=== PATIENT | male | born 1960 | race American Indian/Alaskan Native ===

== ENCOUNTER 2016-10-16 13:47 | Inpatient (IN) | payer MEDICAID ==
[2016-10-16] MEDS ORDERED: PROVENTIL IH ONE (16:31)
[2016-10-16] MEDS ORDERED: MAGNESIUM SULFATE 2GM/50ML 2 GM/50 ML BAG IV ONE (16:31)
[2016-10-16] MEDS ORDERED: ATROVENT IH ONE (16:31)
[2016-10-16] MEDS ORDERED: CATAPRES PO ONE (16:34)
--- NOTE | 2016-10-16 16:38 | Emergency Department Report ---
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 Patient had increased wheezing episodes not alleviated with home nebulizer treatments. Patient received albuterol 2.5 mg prior to arrival with minimal improvement. Mild cough reported with chills and no documented fever. Patient has intermittent left-sided neck and left- sided chest pain described as a lightning strike however, patient states he takes narcotic pain medication for chronic chest pain and does not have any narcotics currently. Positive history of intubations.Pt denies home 02 use. 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 - Related Data Home Medications Medication Instructions Recorded Confirmed Last Taken cloNIDine [Catapres] 0.1 mg PO BID 10/16/16 10/16/16 Unknown Previous Rx's Medication Instructions Recorded Last Taken Type ALBUTEROL NEB's [Proventil 0.083% 2.5 mg IH TID #10 ml 02/04/16 Unknown Rx NEBS] Carvedilol [Coreg] 25 mg PO BID #60 tablet 02/04/16 Unknown Rx Fluticasone/Salmeterol [Advair 1 puff IH BID #1 blst.w.dev 02/04/16 Unknown Rx Diskus 500-50 mcg] Simvastatin [Zocor TAB] 10 mg PO QHS #30 tablet 02/04/16 Unknown Rx Tiotropium [Spiriva] 18 mcg IH QDAY #1 cap 02/04/16 Unknown Rx amLODIPine [Norvasc] 10 mg PO QDAY #30 tablet 02/04/16 Unknown Rx Aspirin [Aspirin BABY CHEW TAB] 81 mg PO QDAY tab.chew 04/29/16 Unknown Rx Ipratropium/Albuterol Sulfate 1 ampul IH TIDRT ampul.neb 04/29/16 Unknown Rx [Duoneb 0.5 mg-3 mg/3 ml Soln] Pantoprazole [Protonix TAB] 40 mg PO DAILY #30 tablet 04/29/16 Unknown Rx Allergies Allergy/AdvReac Type Severity Reaction Status Date / Time acetaminophen [From Tylenol] Allergy Unknown Verified 02/13/15 15:01 ED Review of Systems ROS: Stated complaint: JOSE DE JESUS Other details as noted in HPI Comment: All other systems reviewed and negative Other: Constitutional: No fevers Eyes: No eye pain visual changes ENT: No ear pain or throat pain Neck: Left-sided neck pain sending to left chest Respiratory: As per HPI Cardiovascular: Chest pain as per HPI GI: Denies abdominal pain, nausea, vomiting, diarrhea : Denies dysuria, urinary frequency, or urgency Musculoskeletal: Denies back pain, joint swelling Skin: Denies rash, lesions, erythema Neurologic: Denies headache, numbness, weakness Psychiatric: Denies suicidal ideation, hallucinations ED Past Medical Hx - Past Medical History Previous Medical History?: Yes Hx Hypertension: Yes Hx CVA: Yes (uses walker, intermittent difficulty speaking after CVA) Hx Heart Attack/AMI: Yes Hx Congestive Heart Failure: Yes Hx Diabetes: No Hx Pulmonary Embolism: No Hx GERD: No Hx Liver Disease: No Hx Renal Disease: No Hx Arthritis: Yes Hx Seizures: No Hx Kidney Stones: No Hx Asthma: Yes Hx COPD: Yes Hx Tuberculosis: No Hx Dementia: No Hx HIV: No Additional medical history: aortic valve replacement X 2 - Surgical History Past Surgical History?: Yes Hx Open Heart Surgery: Yes (aortic valve replacement X 2 (mechanical 2005, porcine 2013)) Hx Pacemaker: No Hx Internal Defibrillator: No - Social History Smoking Status: Former Smoker - Medications Home Medications: Home Medications Medication Instructions Recorded Confirmed Last Taken Type ALBUTEROL NEB's [Proventil 0.083% 2.5 mg IH TID #10 ml 02/04/16 10/16/16 Unknown Rx NEBS] Carvedilol [Coreg] 25 mg PO BID #60 tablet 02/04/16 10/16/16 Unknown Rx Fluticasone/Salmeterol [Advair 1 puff IH BID #1 blst.w.dev 02/04/16 10/16/16 Unknown Rx Diskus 500-50 mcg] Simvastatin [Zocor TAB] 10 mg PO QHS #30 tablet 02/04/16 10/16/16 Unknown Rx Tiotropium [Spiriva] 18 mcg IH QDAY #1 cap 02/04/16 10/16/16 Unknown Rx amLODIPine [Norvasc] 10 mg PO QDAY #30 tablet 02/04/16 10/16/16 Unknown Rx Aspirin [Aspirin BABY CHEW TAB] 81 mg PO QDAY tab.chew 04/29/16 10/16/16 Unknown Rx Ipratropium/Albuterol Sulfate 1 ampul IH TIDRT ampul.neb 04/29/16 10/16/16 Unknown Rx [Duoneb 0.5 mg-3 mg/3 ml Soln] Pantoprazole [Protonix TAB] 40 mg PO DAILY #30 tablet 04/29/16 10/16/16 Unknown Rx cloNIDine [Catapres] 0.1 mg PO BID 10/16/16 10/16/16 Unknown History ED Physical Exam - General Limitations: No Limitations - Other Other exam information: General: No limitations, patient is alert in no acute distress Head exam: Atraumatic, normocephalic Eyes exam: Normal appearance, pupils equal reactive to light, extraocular movements intact ENT: Moist mucous membrane, normal oropharynx Neck exam: Normal inspection, full range of motion, no meningismus, left scm muscle pain with movement Respiratory exam: Mild tachypnea and accessory muscle use, diminished breath sounds bilaterally, no wheezes or crackles auscultated Cardiovascular: Normal rate and rhythm, sternal scar Abdomen: Soft, nondistended, and nontender, with normal bowel sounds, no rebound, or guarding Extremity: Full range of motion normal inspection no deformity, tenderness or edema Back: Normal Inspection, full range of motion, no tenderness Neurologic: Alert, oriented x3, cranial nerves intact, left sided 4/5 upper and lower extremity strength compared to right Psychiatric: normal affect, normal mood Skin: Warm, dry, intact ED Course Vital Signs 10/16/16 10/16/16 10/16/16 13:53 15:06 15:30 Temperature 98.1 F Pulse Rate 82 61 64 Pulse Rate [ Anterior Bilateral Throughout] Respiratory 24 17 14 Rate Respiratory Rate [Anterior Bilateral Throughout] Blood Pressure 160/100 172/108 O2 Sat by Pulse 97 98 96 Oximetry 10/16/16 10/16/16 10/16/16 16:00 16:30 16:42 Temperature Pulse Rate 63 98 H 66 Pulse Rate [ Anterior Bilateral Throughout] Respiratory 18 24 Rate Respiratory Rate [Anterior Bilateral Throughout] Blood Pressure 171/108 187/110 174/111 O2 Sat by Pulse 100 100 Oximetry 10/16/16 10/16/16 10/16/16 16:45 16:59 17:00 Temperature Pulse Rate 126 H Pulse Rate [ 73 83 Anterior Bilateral Throughout] Respiratory 17 Rate Respiratory 15 16 Rate [Anterior Bilateral Throughout] Blood Pressure 162/104 O2 Sat by Pulse 93 Oximetry 10/16/16 10/16/16 10/16/16 17:30 18:00 18:07 Temperature 98.2 F Pulse Rate 64 60 Pulse Rate [ Anterior Bilateral Throughout] Respiratory 16 21 Rate Respiratory Rate [Anterior Bilateral Throughout] Blood Pressure 172/100 166/95 O2 Sat by Pulse 93 94 Oximetry - Reevaluation(s) Reevaluation #1: 10/16/16 16:37 Albuterol, Atrovent, Solu-Medrol, and magnesium ordered. Clonidine 0.1 mg ordered for persistent hypertension patient states she's been compliant with his meds. Dilaudid given for left chest and neck pain 10/16/16 18:31 Reevaluation #2: 10/16/16 18:25 BP improving with ED treatment. Pain improving with ED treatment. Breathing improved with ED treatment ED Medical Decision Making - Lab Data Result diagrams: 10/16/16 16:25 10/16/16 16:25 Lab Results 10/16/16 10/16/16 Range/Units 16:25 16:25 WBC 5.6 (4.5-11.0) K/mm3 RBC 5.23 H (3.65-5.03) M/mm3 Hgb 14.9 (11.8-15.2) gm/dl Hct 45.2 (35.5-45.6) % MCV 86 (84-94) fl MCH 29 (28-32) pg MCHC 33 (32-34) % RDW 13.9 (13.2-15.2) % Plt Count 116 L (140-440) K/mm3 Lymph % (Auto) 28.4 (13.4-35.0) % [place] % (Auto) 11.3 H (0.0-7.3) % Eos % (Auto) 10.9 H (0.0-4.3) % Baso % (Auto) 1.0 (0.0-1.8) % Lymph # 1.6 (1.2-5.4) K/mm3 [place] # 0.6 (0.0-0.8) K/mm3 Eos # 0.6 H (0.0-0.4) K/mm3 Baso # 0.1 (0.0-0.1) K/mm3 Seg Neutrophils % 48.4 (40.0-70.0) % Seg Neutrophils # 2.7 (1.8-7.7) K/mm3 Sodium 143 (137-145) mmol/L Potassium 3.3 L (3.6-5.0) mmol/L Chloride 100.2 (98-107) mmol/L Carbon Dioxide 27 (22-30) mmol/L Anion Gap 19 mmol/L BUN 13 (9-20) mg/dL Creatinine 1.5 (0.8-1.5) mg/dL Estimated GFR 59 ml/min BUN/Creatinine Ratio 8.66 % Glucose 92 (75-100) mg/dL Calcium 9.2 (8.4-10.2) mg/dL Troponin T < 0.010 (0.00-0.029) ng/mL - EKG Data -: EKG Interpreted by Me (nsr 62, no stemi) - Radiology Data Radiology results: report reviewed (cxr hyperinflation), image reviewed (chest x -ray: Hyperinflated without infiltrates, pneumothorax, or edema) - Medical Decision Making plan to admit to hospital for further copd treatment - Differential Diagnosis CHF, COPD, asthma, pneumonia, bronchitis, ND, chronic chest pain Critical Care Time: No Critical care attestation.: If time is entered above; I have spent that time in minutes in the direct care of this critically ill patient, excluding procedure time. ED Disposition Clinical Impression: Chest pain, HTN (hypertension), Hemiparesis affecting left side as late effect of cerebrovascular accident, COPD exacerbation Disposition: OP ADMITTED IP TO THIS HOSP Is pt being admited?: Yes Instructions: Hypertension (ED) Time of Disposition: 18:27 (Dr Tejada/hosp)
[2016-10-16] MEDS ORDERED: ZOFRAN IV ONE (16:49)
[2016-10-16] MEDS ORDERED: DILAUDID IV ONE (16:49)
--- NOTE | 2016-10-16 16:50 | XRay Report ---
AP chest x-ray. Findings: The heart and pulmonary vessels are normal. The lungs are clear and appear hyperinflated. There is no evidence of pleural fluid. Sternotomy sutures are noted. Impression: Hyperinflation lungs with no acute findings.
[2016-10-16 17:14] LABS: Eosinophils % (Auto) 10.9 % (0.0-4.3); Hematocrit 45.2 % (35.5-45.6); Hemoglobin 14.9 gm/dl (11.8-15.2); Mean Corpuscular HGB Conc 33 % (32-34); Mean Corpuscular Hemoglobin 29 pg (28-32); Mean Corpuscular Volume 86 fl (84-94); Red Blood Count 5.23 M/mm3 (3.65-5.03); Red Cell Distribution Width 13.9 % (13.2-15.2); White Blood Count 5.6 K/mm3 (4.5-11.0)
[2016-10-16 17:56] LABS: Anion Gap 19 mmol/L; BUN/Creatinine Ratio 8.66; Blood Urea Nitrogen 13 mg/dL (9-20); Calcium 9.2 mg/dL (8.4-10.2); Carbon Dioxide 27 mmol/L (22-30); Chloride 100.2 mmol/L (98-107); Glucose 92 mg/dL (75-100); Potassium 3.3 mmol/L (3.6-5.0); Sodium 143 mmol/L (137-145)
[2016-10-16 18:14] LABS: Platelet Count 116 K/mm3 (140-440)
--- NOTE | 2016-10-16 18:53 | Admit Criteria Form ---
Admission Criteria Documentation: COPD Clinical Indications for Admission to Inpatient Care (Place 'X' for any and all applicable criteria): Admission is indicated for ANY ONE of the following (1)(2)(3): [X]I. Acute exacerbation by high-risk comorbidity (e.g., pneumonia, dysrhythmia, heart failure, pleural effusion, pneumothorax) or severe underlying COPD (e.g., steroid dependent) [X]II. Inpatient admission required rather than observation care (see Chronic Obstructive Pulmonary Disease: Observation Care) because of ANY ONE of the following: [X]a) New or pre-existing signs or symptoms of COPD (eg, dyspnea or Tachypnea at rest or with minimal activity) that persist despite outpatient and observation care treatment [ ]b) New-onset hypoxemia (room air SaO2 less than 90%, PO2 less than 60 mm Hg (8.0 kPa)) that persists despite outpatient and observation care treatment [ ]c) Worsening of pre-existing hypoxemia (eg, new or increased requirement for supplemental oxygen to maintain oxygenation at baseline level) that persists despite outpatient and observation care treatment, with oxygen treatment needs performable only in acute inpatient setting [ ]d) Hypercarbia (PCO2 greater than 40 mm Hg (5.3 kPa))-induced respiratory acidosis (pH less than 7.35) that persists despite outpatient and observation care treatment [ ]e) Supplemental oxygen or respiratory treatments for over 24 hours that are performable only in acute inpatient setting [ ]f) Chest tube placement with active evacuation (e.g., suction, drainage) (5) [ ]g) Other condition, treatment or monitoring requiring inpatient admission [ ]III. Planned invasive surgical or diagnostic procedures requiring acute- care hospitalization [ ]IV. Acute respiratory failure (e.g., uncompensated hypercarbia, severe hypoxemia) [ ]V. Severe comorbid condition (e.g., severe steroid myopathy, acute vertebral fracture) that has acutely worsened pulmonary function [ ]. Confusion state, lethargy, obtundation, stupor or coma Extended stay beyond goal length of stay may be needed for (31)(32): [ ]a ) Respiratory Failure. [ ]b) Severe or persisting hypoxemia or hypercarbia [ ]c) Severe or persistent dyspnea [ ]d) Comorbidities (e.g. chronic heart failure, atrial fibrillation with rapid response, pneumonia) [ ]e) Malnutrition The original [facility] content created by [facility] has been revised. The portions of the content which have been revised are identified through the use of italic text or in bold, and [facility] has neither reviewed nor approved the modified material. All other unmodified content is copyright [facility]. Please see references footnoted in the original [facility] edition 2016 Admission Criteria Met: Yes
[2016-10-16] MEDS ORDERED: PERCOCET 5/325 PO PRN (21:37)
[2016-10-16] MEDS ORDERED: TYLENOL PO PRN (21:37)
[2016-10-16] MEDS ORDERED: MILK OF MAGNESIA PO PRN (21:37)
[2016-10-16] MEDS ORDERED: AMBIEN PO PRN (21:37)
[2016-10-16] MEDS ORDERED: DULCOLAX PR PRN (21:37)
--- NOTE | 2016-10-16 21:37 | History and Physical Report ---
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 Patient had increased wheezing episodes not alleviated with home nebulizer treatments. Patient received albuterol 2.5 mg prior to arrival with minimal improvement. Mild cough reported with chills and no documented fever. Patient has intermittent left-sided neck and left- sided chest pain described as a lightning strike however, patient states he takes narcotic pain medication for chronic chest pain and does not have any narcotics currently. Positive history of intubations.Pt denies home 02 use. 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 Past History Past Medical History: COPD, hypertension, hyperlipidemia, stroke (in the past) Past Surgical History: valve replacement Social history: lives with family, smoking Family history: hypertension Medications and Allergies Allergies Allergy/AdvReac Type Severity Reaction Status Date / Time acetaminophen [From Tylenol] Allergy Unknown Verified 02/13/15 15:01 Home Medications Medication Instructions Recorded Confirmed Last Taken Type ALBUTEROL NEB's [Proventil 0.083% 2.5 mg IH TID #10 ml 02/04/16 10/16/16 Unknown Rx NEBS] Carvedilol [Coreg] 25 mg PO BID #60 tablet 02/04/16 10/16/16 Unknown Rx Fluticasone/Salmeterol [Advair 1 puff IH BID #1 blst.w.dev 02/04/16 10/16/16 Unknown Rx Diskus 500-50 mcg] Simvastatin [Zocor TAB] 10 mg PO QHS #30 tablet 02/04/16 10/16/16 Unknown Rx Tiotropium [Spiriva] 18 mcg IH QDAY #1 cap 02/04/16 10/16/16 Unknown Rx amLODIPine [Norvasc] 10 mg PO QDAY #30 tablet 02/04/16 10/16/16 Unknown Rx Aspirin [Aspirin BABY CHEW TAB] 81 mg PO QDAY tab.chew 04/29/16 10/16/16 Unknown Rx Ipratropium/Albuterol Sulfate 1 ampul IH TIDRT ampul.neb 04/29/16 10/16/16 Unknown Rx [Duoneb 0.5 mg-3 mg/3 ml Soln] Pantoprazole [Protonix TAB] 40 mg PO DAILY #30 tablet 04/29/16 10/16/16 Unknown Rx cloNIDine [Catapres] 0.1 mg PO BID 10/16/16 10/16/16 Unknown History Active Meds: Active Medications Enoxaparin Sodium (Lovenox) 40 mg SUB-Q QDAY JUANJOSE Review of Systems All systems: negative Cardiovascular: chest pain Respiratory: shortness of breath, congestion, wheezing Neurological: paralysis (L side) Exam - Constitutional Vitals: Temp Pulse Resp BP Pulse Ox 97.7 F 71 19 136/86 94 10/16/16 19:40 10/16/16 19:40 10/16/16 19:40 10/16/16 19:40 10/16/16 19:40 General appearance: Present: no acute distress, well-nourished - EENT Eyes: Present: PERRL ENT: hearing intact, clear oral mucosa - Neck Neck: Present: supple, normal ROM - Respiratory Respiratory effort: normal Respiratory: bilateral: CTA - Cardiovascular Heart Sounds: Present: S1 & S2. Absent: rub, click - Extremities Extremities: pulses symmetrical, No edema Peripheral Pulses: within normal limits - Abdominal General gastrointestinal: Present: soft, non-tender, non-distended, normal bowel sounds Male genitourinary: Present: normal - Integumentary Integumentary: Present: clear, warm, dry - Musculoskeletal Musculoskeletal: gait normal, strength equal bilaterally - Psychiatric Psychiatric: appropriate mood/affect, intact judgment & insight - Neurologic Neurologic: CNII-XII intact, focal deficits (L side Hemiparesis) Results - Labs CBC & Chem 7: 10/17/16 06:52 10/17/16 06:52 Assessment and Plan - Patient Problems (1) Acute respiratory failure with hypoxia Current Visit: No Status: Acute Plan to address problem: Cont Neb Tx Solumedrol and Levaquin IV (2) COPD exacerbation Current Visit: Yes Status: Acute Plan to address problem: Started on Neb tx solumedrol and Levaquin iv 750 mg q24 (3) HTN (hypertension) Current Visit: Yes Status: Chronic Qualifiers: Hypertension type: essential hypertension Qualified Code(s): I10 - Essential (primary) hypertension Plan to address problem: Cont Antihypertensives (4) CVA (cerebral vascular accident) Current Visit: No Status: Chronic Qualifiers: CVA mechanism: thrombosis Precerebral and cerebral artery: middle cerebral artery Laterality of affected vessel: right Qualified Code(s): I63.311 - Cerebral infarction due to thrombosis of right middle cerebral artery Plan to address problem: L side weakness-supportive care (5) HLD (hyperlipidemia) Current Visit: Yes Status: Acute Qualifiers: Hyperlipidemia type: H (6) Hyperlipidemia Current Visit: No Status: Chronic Qualifiers: Hyperlipidemia type: mixed hyperlipidemia Qualified Code(s): E78.2 - Mixed hyperlipidemia Plan to address problem: Cont statins (7) DVT prophylaxis Current Visit: Yes Status: Acute Plan to address problem: On Lovenox
[2016-10-16] MEDS ORDERED: DUONEB 0.5 MG-3 MG/3 ML SOLN IH PRN (21:39)
[2016-10-16] MEDS ORDERED: PROVENTIL IH PRN (22:09)
[2016-10-16] MEDS: DUONEB 0.5 MG-3 MG/3 ML SOLN IH SCH (22:10)
[2016-10-17] MEDS: DILAUDID PO PRN ×2 (00:12→05:31)
[2016-10-17] MEDS: LEVAQUIN 750MG/150ML 750 MG/150 ML BAG IV SCH (00:16)
[2016-10-17] MEDS: D5NS 1,000 ML IV SCH (00:17)
[2016-10-17] MEDS: DUONEB 0.5 MG-3 MG/3 ML SOLN IH SCH ×4 (02:01→19:32)
[2016-10-17 07:51] LABS: Hematocrit 43.5 % (35.5-45.6); Hemoglobin 14.3 gm/dl (11.8-15.2); Mean Corpuscular HGB Conc 33 % (32-34); Mean Corpuscular Hemoglobin 29 pg (28-32); Mean Corpuscular Volume 87 fl (84-94); Platelet Count 109 K/mm3 (140-440); Red Blood Count 4.99 M/mm3 (3.65-5.03); Red Cell Distribution Width 14.1 % (13.2-15.2); White Blood Count 6.9 K/mm3 (4.5-11.0)
[2016-10-17 08:06] LABS: Albumin 3.9 g/dL (3.9-5); Albumin/Globulin Ratio 1.3 %; BUN/Creatinine Ratio 8.94; Bilirubin,Total 0.7 mg/dL (0.1-1.2); Calcium 9.3 mg/dL (8.4-10.2); Chloride 96.2 mmol/L (98-107); Potassium 3.4 mmol/L (3.6-5.0); Total Protein 6.8 g/dL (6.3-8.2)
[2016-10-17] MEDS ORDERED: PROVENTIL IH PRN (08:48)
[2016-10-17] MEDS: LOVENOX SUB-Q SCH (09:27)
[2016-10-17 09:47] LABS: Basophils % (Manual) 0 % (0.0-1.8); Blastocytes % (Manual) 0 %; Diff Status Complete; Eosinophils % (Manual) 0 % (0.0-4.3); Large Platelets Few; Platelet Estimate Consistent w Auto; RBC Morphology Normal; Total Cells Counted Percent 0
[2016-10-17] MEDS: MORPHINE IV PRN ×3 (11:22→22:54)
--- NOTE | 2016-10-17 13:16 | Progress Note ---
Assessment and Plan Assessment and plan: 55-year-old male presents with COPD exacerbation. Patient appears to have advanced COPD. Limited air entry. Mild wheezing but diminished breath sounds exacerbated by an acute bronchitis. Total Time Spent with Patient (Minutes): 28 - Patient Problems (1) COPD exacerbation Current Visit: Yes Status: Acute Plan to address problem: COPD exacerbation with acute bronchitis. (2) Chest pain Current Visit: Yes Status: Resolved Qualifiers: Chest pain type: C Plan to address problem: Chest pain noncardiac chest pain secondary to coughing acute bronchitis. (3) HTN (hypertension) Current Visit: Yes Status: Chronic Qualifiers: Hypertension type: essential hypertension Qualified Code(s): I10 - Essential (primary) hypertension Plan to address problem: Fairly well-controlled we'll continue anti-hypertensive medications. (4) COPD (chronic obstructive pulmonary disease) with acute bronchitis Current Visit: No Status: Chronic Plan to address problem: COPD would acute bronchitis continue Levaquin continue nebulizes every 6 hours. DuoNeb nebs. Add Solu-Medrol. Patient recently saw Dr. Sushila pantoja 2 days ago and was in the process of being evaluated for home O2. We'll evaluate for home O2 now. History Interval history: Patient states he still short of breath. Patient states he got up to brush his teeth today and became very short of breath. At present patient has dyspnea at rest. Cough thick purulent sputum. Hospitalist Physical - Constitutional Vitals: Temp Pulse Resp BP Pulse Ox 98 F 83 20 116/76 97 10/17/16 08:00 10/17/16 08:50 10/17/16 08:50 10/17/16 08:00 10/17/16 08:45 General appearance: Present: no acute distress, well-nourished - EENT Eyes: Present: PERRL, EOM intact ENT: hearing intact, clear oral mucosa, dentition normal - Neck Neck: Present: supple, normal ROM - Respiratory Respiratory: bilateral: diminished, rales - Cardiovascular Rhythm: regular Heart Sounds: Present: S1 & S2 - Extremities Extremities: no ischemia, pulses intact, pulses symmetrical, No edema, normal temperature - Abdominal General gastrointestinal: soft, non-tender, non-distended - Psychiatric Psychiatric: appropriate mood/affect, intact judgment & insight, cooperative - Neurologic Neurologic: CNII-XII intact Results - Labs CBC & Chem 7: 10/17/16 06:52 02/10/17 06:52 Labs: Laboratory Last Values WBC 6.9 K/mm3 (4.5-11.0) 10/17/16 06:52 RBC 4.99 M/mm3 (3.65-5.03) 10/17/16 06:52 Hgb 14.3 gm/dl (11.8-15.2) 10/17/16 06:52 Hct 43.5 % (35.5-45.6) 10/17/16 06:52 MCV 87 fl (84-94) 10/17/16 06:52 MCH 29 pg (28-32) 10/17/16 06:52 MCHC 33 % (32-34) 10/17/16 06:52 RDW 14.1 % (13.2-15.2) 10/17/16 06:52 Plt Count 109 K/mm3 (140-440) L 10/17/16 06:52 Lymph % (Auto) 28.4 % (13.4-35.0) 10/16/16 16:25 [place] % (Auto) 11.3 % (0.0-7.3) H 10/16/16 16:25 Eos % (Auto) 10.9 % (0.0-4.3) H 10/16/16 16:25 Baso % (Auto) 1.0 % (0.0-1.8) 10/16/16 16:25 Lymph # 1.6 K/mm3 (1.2-5.4) 10/16/16 16:25 [place] # 0.6 K/mm3 (0.0-0.8) 10/16/16 16:25 Eos # 0.6 K/mm3 (0.0-0.4) H 10/16/16 16:25 Baso # 0.1 K/mm3 (0.0-0.1) 10/16/16 16:25 Add Manual Diff Complete 10/17/16 06:52 Total Counted 100 10/17/16 06:52 Seg Neutrophils % 48.4 % (40.0-70.0) 10/16/16 16:25 Seg Neuts % (Manual) 89.0 % (40.0-70.0) H 10/17/16 06:52 Band Neutrophils % 0 % 10/17/16 06:52 Lymphocytes % (Manual) 11.0 % (13.4-35.0) L 10/17/16 06:52 Reactive Lymphs % (Man) 0 % 10/17/16 06:52 Monocytes % (Manual) 0 % (0.0-7.3) 10/17/16 06:52 Eosinophils % (Manual) 0 % (0.0-4.3) 10/17/16 06:52 Basophils % (Manual) 0 % (0.0-1.8) 10/17/16 06:52 Metamyelocytes % 0 % 10/17/16 06:52 Myelocytes % 0 % 10/17/16 06:52 Promyelocytes % 0 % 10/17/16 06:52 Blast Cells % 0 % 10/17/16 06:52 Nucleated RBC % Not Reportable 10/17/16 06:52 Seg Neutrophils # 2.7 K/mm3 (1.8-7.7) 10/16/16 16:25 Seg Neutrophils # Man 6.1 K/mm3 (1.8-7.7) 10/17/16 06:52 Band Neutrophils # 0.0 K/mm3 10/17/16 06:52 Lymphocytes # (Manual) 0.8 K/mm3 (1.2-5.4) L 10/17/16 06:52 Abs React Lymphs (Man) 0.0 K/mm3 10/17/16 06:52 Monocytes # (Manual) 0.0 K/mm3 (0.0-0.8) 10/17/16 06:52 Eosinophils # (Manual) 0.0 K/mm3 (0.0-0.4) 10/17/16 06:52 Basophils # (Manual) 0.0 K/mm3 (0.0-0.1) 10/17/16 06:52 Metamyelocytes # 0.0 K/mm3 10/17/16 06:52 Myelocytes # 0.0 K/mm3 10/17/16 06:52 Promyelocytes # 0.0 K/mm3 10/17/16 06:52 Blast Cells # 0.0 K/mm3 10/17/16 06:52 WBC Morphology Not Reportable 10/17/16 06:52 Hypersegmented Neuts Not Reportable 10/17/16 06:52 Hyposegmented Neuts Not Reportable 10/17/16 06:52 Hypogranular Neuts Not Reportable 10/17/16 06:52 Smudge Cells Not Reportable 10/17/16 06:52 Toxic Granulation Not Reportable 10/17/16 06:52 Toxic Vacuolation Not Reportable 10/17/16 06:52 Dohle Bodies Not Reportable 10/17/16 06:52 Pelger-Huet Anomaly Not Reportable 10/17/16 06:52 Josselyn Rods Not Reportable 10/17/16 06:52 Platelet Estimate Consistent w auto 10/17/16 06:52 Clumped Platelets Not Reportable 10/17/16 06:52 Plt Clumps, EDTA Not Reportable 10/17/16 06:52 Large Platelets Few 10/17/16 06:52 Giant Platelets Not Reportable 10/17/16 06:52 Platelet Satelliting Not Reportable 10/17/16 06:52 Plt Morphology Comment Not Reportable 10/17/16 06:52 RBC Morphology Normal 10/17/16 06:52 Dimorphic RBCs Not Reportable 10/17/16 06:52 Polychromasia Not Reportable 10/17/16 06:52 Hypochromasia Not Reportable 10/17/16 06:52 Poikilocytosis Not Reportable 10/17/16 06:52 Anisocytosis Not Reportable 10/17/16 06:52 Microcytosis Not Reportable 10/17/16 06:52 Macrocytosis Not Reportable 10/17/16 06:52 Spherocytes Not Reportable 10/17/16 06:52 Pappenheimer Bodies Not Reportable 10/17/16 06:52 Sickle Cells Not Reportable 10/17/16 06:52 Target Cells Not Reportable 10/17/16 06:52 Tear Drop Cells Not Reportable 10/17/16 06:52 Ovalocytes Not Reportable 10/17/16 06:52 Helmet Cells Not Reportable 10/17/16 06:52 [place]ne-[place] Bodies Not Reportable 10/17/16 06:52 [place] Rings Not Reportable 10/17/16 06:52 Mariano Cells Not Reportable 10/17/16 06:52 Bite Cells Not Reportable 10/17/16 06:52 Crenated Cell Not Reportable 10/17/16 06:52 Elliptocytes Not Reportable 10/17/16 06:52 Acanthocytes (Spur) Not Reportable 10/17/16 06:52 Rouleaux Not Reportable 10/17/16 06:52 Hemoglobin C Crystals Not Reportable 10/17/16 06:52 Schistocytes Not Reportable 10/17/16 06:52 Malaria parasites Not Reportable 10/17/16 06:52 Zev Bodies Not Reportable 10/17/16 06:52 Hem Pathologist Commnt No 10/17/16 06:52 Sodium 140 mmol/L (137-145) 10/17/16 06:52 Potassium 3.4 mmol/L (3.6-5.0) L 10/17/16 06:52 Chloride 96.2 mmol/L (98-107) L 10/17/16 06:52 Carbon Dioxide 31 mmol/L (22-30) H 10/17/16 06:52 Anion Gap 16 mmol/L 10/17/16 06:52 BUN 17 mg/dL (9-20) 10/17/16 06:52 Creatinine 1.9 mg/dL (0.8-1.5) H 10/17/16 06:52 Estimated GFR 45 ml/min 10/17/16 06:52 BUN/Creatinine Ratio 8.94 % 10/17/16 06:52 Glucose 128 mg/dL (75-100) H 10/17/16 06:52 Hemoglobin A1c 6.0 % (4-6) 10/16/16 16:25 Calcium 9.3 mg/dL (8.4-10.2) 10/17/16 06:52 Total Bilirubin 0.7 mg/dL (0.1-1.2) 10/17/16 06:52 AST 18 units/L (5-40) 10/17/16 06:52 ALT 15 units/L (7-56) 10/17/16 06:52 Alkaline Phosphatase 88 units/L (35-129) 10/17/16 06:52 Troponin T < 0.010 ng/mL (0.00-0.029) 10/16/16 20:07 Total Protein 6.8 g/dL (6.3-8.2) 10/17/16 06:52 Albumin 3.9 g/dL (3.9-5) 10/17/16 06:52 Albumin/Globulin Ratio 1.3 % 10/17/16 06:52 - Imaging and Cardiology EKG: report reviewed Chest x-ray: image reviewed
[2016-10-17] MEDS: ZOFRAN IV PRN ×2 (15:09→22:54)
[2016-10-18] MEDS: DUONEB 0.5 MG-3 MG/3 ML SOLN IH SCH ×4 (02:00→20:20)
[2016-10-18] MEDS: MORPHINE IV PRN ×4 (02:34→22:17)
--- NOTE | 2016-10-18 09:35 | Progress Note ---
Assessment and Plan Assessment and plan: 55-year-old male presents with COPD exacerbation. Patient appears to have advanced COPD. Limited air entry. Mild wheezing but diminished breath sounds exacerbated by an acute bronchitis. - Patient Problems (1) COPD exacerbation Current Visit: Yes Status: Acute Plan to address problem: COPD has improved significantly over p.m. Should be able to be discharged in a.m. on anabiotic's story taper. (2) Chest pain Current Visit: Yes Status: Resolved Qualifiers: Chest pain type: C Plan to address problem: Chest pain noncardiac chest pain secondary to coughing acute bronchitis. (3) HTN (hypertension) Current Visit: Yes Status: Chronic Qualifiers: Hypertension type: essential hypertension Qualified Code(s): I10 - Essential (primary) hypertension Plan to address problem: Patient continues to have optimal control of blood pressure. (4) COPD (chronic obstructive pulmonary disease) with acute bronchitis Current Visit: No Status: Chronic Plan to address problem: COPD would acute bronchitis continue Levaquin continue nebulizes every 6 hours. DuoNeb nebs. Add Solu-Medrol. Patient recently saw Dr. Sushila pantoja 2 days ago and was in the process of being evaluated for home O2. We'll evaluate for home O2 now. History Interval history: Hospital course complicated by nausea vomiting after coughing. PERRLA sputum. Otherwise no new events. Patient appears to be much more calm and breathing better than yesterday. Hospitalist Physical - Constitutional Vitals: Temp Pulse Resp BP Pulse Ox 98.6 F 92 H 18 160/90 96 10/18/16 08:14 10/18/16 08:14 10/18/16 08:14 10/18/16 08:14 10/18/16 08:14 General appearance: Present: no acute distress, well-nourished - EENT Eyes: Present: PERRL, EOM intact ENT: hearing intact, clear oral mucosa, dentition normal - Respiratory Respiratory: bilateral: diminished, rhonchi - Cardiovascular Rhythm: regular Heart Sounds: Present: S1 & S2 - Extremities Extremities: no ischemia, pulses intact, pulses symmetrical, No edema, normal temperature, normal color - Abdominal General gastrointestinal: soft, non-tender, non-distended - Integumentary Integumentary: Present: clear, warm - Psychiatric Psychiatric: appropriate mood/affect, intact judgment & insight, cooperative - Neurologic Neurologic: CNII-XII intact, focal deficits Results - Labs CBC & Chem 7: 10/17/16 06:52 02 06:52 Labs: Laboratory Last Values WBC 6.9 K/mm3 (4.5-11.0) 10/17/16 06:52 RBC 4.99 M/mm3 (3.65-5.03) 10/17/16 06:52 Hgb 14.3 gm/dl (11.8-15.2) 10/17/16 06:52 Hct 43.5 % (35.5-45.6) 10/17/16 06:52 MCV 87 fl (84-94) 10/17/16 06:52 MCH 29 pg (28-32) 10/17/16 06:52 MCHC 33 % (32-34) 10/17/16 06:52 RDW 14.1 % (13.2-15.2) 10/17/16 06:52 Plt Count 109 K/mm3 (140-440) L 10/17/16 06:52 Lymph % (Auto) 28.4 % (13.4-35.0) 10/16/16 16:25 [place] % (Auto) 11.3 % (0.0-7.3) H 10/16/16 16:25 Eos % (Auto) 10.9 % (0.0-4.3) H 10/16/16 16:25 Baso % (Auto) 1.0 % (0.0-1.8) 10/16/16 16:25 Lymph # 1.6 K/mm3 (1.2-5.4) 10/16/16 16:25 [place] # 0.6 K/mm3 (0.0-0.8) 10/16/16 16:25 Eos # 0.6 K/mm3 (0.0-0.4) H 10/16/16 16:25 Baso # 0.1 K/mm3 (0.0-0.1) 10/16/16 16:25 Add Manual Diff Complete 10/17/16 06:52 Total Counted 100 10/17/16 06:52 Seg Neutrophils % 48.4 % (40.0-70.0) 10/16/16 16:25 Seg Neuts % (Manual) 89.0 % (40.0-70.0) H 10/17/16 06:52 Band Neutrophils % 0 % 10/17/16 06:52 Lymphocytes % (Manual) 11.0 % (13.4-35.0) L 10/17/16 06:52 Reactive Lymphs % (Man) 0 % 10/17/16 06:52 Monocytes % (Manual) 0 % (0.0-7.3) 10/17/16 06:52 Eosinophils % (Manual) 0 % (0.0-4.3) 10/17/16 06:52 Basophils % (Manual) 0 % (0.0-1.8) 10/17/16 06:52 Metamyelocytes % 0 % 10/17/16 06:52 Myelocytes % 0 % 10/17/16 06:52 Promyelocytes % 0 % 10/17/16 06:52 Blast Cells % 0 % 10/17/16 06:52 Nucleated RBC % Not Reportable 10/17/16 06:52 Seg Neutrophils # 2.7 K/mm3 (1.8-7.7) 10/16/16 16:25 Seg Neutrophils # Man 6.1 K/mm3 (1.8-7.7) 10/17/16 06:52 Band Neutrophils # 0.0 K/mm3 10/17/16 06:52 Lymphocytes # (Manual) 0.8 K/mm3 (1.2-5.4) L 10/17/16 06:52 Abs React Lymphs (Man) 0.0 K/mm3 10/17/16 06:52 Monocytes # (Manual) 0.0 K/mm3 (0.0-0.8) 10/17/16 06:52 Eosinophils # (Manual) 0.0 K/mm3 (0.0-0.4) 10/17/16 06:52 Basophils # (Manual) 0.0 K/mm3 (0.0-0.1) 10/17/16 06:52 Metamyelocytes # 0.0 K/mm3 10/17/16 06:52 Myelocytes # 0.0 K/mm3 10/17/16 06:52 Promyelocytes # 0.0 K/mm3 10/17/16 06:52 Blast Cells # 0.0 K/mm3 10/17/16 06:52 WBC Morphology Not Reportable 10/17/16 06:52 Hypersegmented Neuts Not Reportable 10/17/16 06:52 Hyposegmented Neuts Not Reportable 10/17/16 06:52 Hypogranular Neuts Not Reportable 10/17/16 06:52 Smudge Cells Not Reportable 10/17/16 06:52 Toxic Granulation Not Reportable 10/17/16 06:52 Toxic Vacuolation Not Reportable 10/17/16 06:52 Dohle Bodies Not Reportable 10/17/16 06:52 Pelger-Huet Anomaly Not Reportable 10/17/16 06:52 Josselyn Rods Not Reportable 10/17/16 06:52 Platelet Estimate Consistent w auto 10/17/16 06:52 Clumped Platelets Not Reportable 10/17/16 06:52 Plt Clumps, EDTA Not Reportable 10/17/16 06:52 Large Platelets Few 10/17/16 06:52 Giant Platelets Not Reportable 10/17/16 06:52 Platelet Satelliting Not Reportable 10/17/16 06:52 Plt Morphology Comment Not Reportable 10/17/16 06:52 RBC Morphology Normal 10/17/16 06:52 Dimorphic RBCs Not Reportable 10/17/16 06:52 Polychromasia Not Reportable 10/17/16 06:52 Hypochromasia Not Reportable 10/17/16 06:52 Poikilocytosis Not Reportable 10/17/16 06:52 Anisocytosis Not Reportable 10/17/16 06:52 Microcytosis Not Reportable 10/17/16 06:52 Macrocytosis Not Reportable 10/17/16 06:52 Spherocytes Not Reportable 10/17/16 06:52 Pappenheimer Bodies Not Reportable 10/17/16 06:52 Sickle Cells Not Reportable 10/17/16 06:52 Target Cells Not Reportable 10/17/16 06:52 Tear Drop Cells Not Reportable 10/17/16 06:52 Ovalocytes Not Reportable 10/17/16 06:52 Helmet Cells Not Reportable 10/17/16 06:52 [place] Bodies Not Reportable 10/17/16 06:52 [place] Rings Not Reportable 10/17/16 06:52 Mariano Cells Not Reportable 10/17/16 06:52 Bite Cells Not Reportable 10/17/16 06:52 Crenated Cell Not Reportable 10/17/16 06:52 Elliptocytes Not Reportable 10/17/16 06:52 Acanthocytes (Spur) Not Reportable 10/17/16 06:52 Rouleaux Not Reportable 10/17/16 06:52 Hemoglobin C Crystals Not Reportable 10/17/16 06:52 Schistocytes Not Reportable 10/17/16 06:52 Malaria parasites Not Reportable 10/17/16 06:52 Zev Bodies Not Reportable 10/17/16 06:52 Hem Pathologist Commnt No 10/17/16 06:52 Sodium 140 mmol/L (137-145) 10/17/16 06:52 Potassium 3.4 mmol/L (3.6-5.0) L 10/17/16 06:52 Chloride 96.2 mmol/L (98-107) L 10/17/16 06:52 Carbon Dioxide 31 mmol/L (22-30) H 10/17/16 06:52 Anion Gap 16 mmol/L 10/17/16 06:52 BUN 17 mg/dL (9-20) 10/17/16 06:52 Creatinine 1.9 mg/dL (0.8-1.5) H 10/17/16 06:52 Estimated GFR 45 ml/min 10/17/16 06:52 BUN/Creatinine Ratio 8.94 % 10/17/16 06:52 Glucose 128 mg/dL (75-100) H 10/17/16 06:52 Hemoglobin A1c 6.0 % (4-6) 10/16/16 16:25 Calcium 9.3 mg/dL (8.4-10.2) 10/17/16 06:52 Total Bilirubin 0.7 mg/dL (0.1-1.2) 10/17/16 06:52 AST 18 units/L (5-40) 10/17/16 06:52 ALT 15 units/L (7-56) 10/17/16 06:52 Alkaline Phosphatase 88 units/L (35-129) 10/17/16 06:52 Troponin T < 0.010 ng/mL (0.00-0.029) 10/16/16 20:07 Total Protein 6.8 g/dL (6.3-8.2) 10/17/16 06:52 Albumin 3.9 g/dL (3.9-5) 10/17/16 06:52 Albumin/Globulin Ratio 1.3 % 10/17/16 06:52
[2016-10-18] MEDS: LOVENOX SUB-Q SCH (10:56)
[2016-10-18] MEDS: ZOFRAN IV PRN ×2 (12:30→22:19)
[2016-10-18] MEDS: D5NS 1,000 ML IV SCH (15:48)
[2016-10-18] MEDS: LEVAQUIN 750MG/150ML 750 MG/150 ML BAG IV SCH (22:14)
[2016-10-19] MEDS: DUONEB 0.5 MG-3 MG/3 ML SOLN IH SCH ×3 (01:44→14:41)
[2016-10-19] MEDS ORDERED: REGLAN IV PRN (05:00)
[2016-10-19] MEDS ORDERED: CATAPRES PO STA (05:01)
[2016-10-19 08:28] VITALS: BP 168/92
[2016-10-19] MEDS ORDERED: CATAPRES PO SCH (10:00)
[2016-10-19] MEDS ORDERED: NORVASC PO SCH (10:00)
[2016-10-19] MEDS: LOVENOX SUB-Q SCH (10:35)
[2016-10-19] MEDS ORDERED: ZITHROMAX PO SCH (12:00)
--- NOTE | 2016-10-19 12:10 | Discharge Summary ---
Providers - Providers Date of Admission: 10/16/16 18:31 Date of discharge: 10/19/16 Attending physician: THALIA PINEDA none Primary care physician: METER CHANGES RECORDS CLERK Hospitalization Condition: Good Pertinent studies: Chest x-ray negative for pneumonia Hospital course: Patient presented with COPD exacerbation. Defervesced over 2 days with nebulizes still reports Solu-Medrol oxygen and supportive care. Patient had recent evaluation by headwaiter/headwaitress for home O2 and was not a candidate. We will repeat it test for home O2 with similar results. Patient be discharged with nebulizes steroidal taper follow with Dr. Ibarra in 3-5 days. Disposition: DISCHARGED TO HOME OR SELFCARE - Discharge Diagnoses (1) COPD exacerbation Status: Acute Comment: I continue to acute bronchitis discharging with anabiotic since erythromycin story taper nebulizers. And long-acting beta agonists. (2) Chest pain Status: Resolved Qualifiers: Chest pain type: C Comment: A due to cough noncardiogenic. Pleuritic pain. (3) HTN (hypertension) Status: Chronic Qualifiers: Hypertension type: essential hypertension Qualified Code(s): I10 - Essential (primary) hypertension Comment: Well-controlled continue antihypertensives. (4) COPD (chronic obstructive pulmonary disease) with acute bronchitis Status: Chronic Comment: As long-acting beta mayra to albuterol. Core Measure Documentation - Palliative Care Palliative Care/ Comfort Measures: Not Applicable - Core Measures Any of the following diagnoses?: none Exam - Constitutional Vitals: Temp Pulse Resp BP Pulse Ox 98.4 F 86 20 168/92 100 10/19/16 08:26 10/19/16 08:26 10/19/16 08:26 10/19/16 08:26 10/19/16 08:26 General appearance: Present: no acute distress, well-nourished - EENT Eyes: Present: PERRL ENT: hearing intact, clear oral mucosa - Neck Neck: Present: supple, normal ROM - Respiratory Respiratory effort: normal Respiratory: bilateral: diminished (no wheezing no crackles good oxygenation.) - Cardiovascular Heart Sounds: Present: S1 & S2. Absent: rub, click - Extremities Extremities: pulses symmetrical, No edema Peripheral Pulses: within normal limits - Abdominal General gastrointestinal: Present: soft, non-tender, non-distended, normal bowel sounds - Integumentary Integumentary: Present: clear, warm, dry - Musculoskeletal Musculoskeletal: gait normal, strength equal bilaterally - Psychiatric Psychiatric: appropriate mood/affect, intact judgment & insight - Neurologic Neurologic: CNII-XII intact, moves all extremities Plan Activity: no restrictions Weight Bearing Status: Full Weight Bearing Diet: regular Special Instructions: smoking cessation Durable Medical Equipment Needed Upon Discharge: Oxygen Follow up with: PRIMARY CARE, [Primary Care Provider] - 3-5 Days Prescriptions: amLODIPine [Norvasc] 10 mg PO QDAY #30 tablet Fluticasone/Salmeterol [Advair Diskus 500-50 mcg] 1 puff IH BID #1 blst.w.dev Pantoprazole [Protonix TAB] 40 mg PO DAILY #30 tablet predniSONE [Deltasone] 10 mg PO QDAY #30 tablet Simvastatin [Zocor TAB] 10 mg PO QHS #30 tablet Tiotropium [Spiriva] 18 mcg IH QDAY #1 cap Zolpidem [Ambien] 5 mg PO QHS PRN #20 tablet PRN Reason: Insomnia
[2016-10-19] MEDS ORDERED: DELTASONE PO SCH (13:00)
[2016-10-19] MEDS ORDERED: ZOFRAN ONE (15:20)
[2016-10-19] MEDS ORDERED: ZOFRAN PO ONE (15:34)
[2016-10-22] MEDS ORDERED: DELTASONE PO SCH (10:00)
[2016-10-27] MEDS ORDERED: DELTASONE PO SCH (10:00)
== END 2016-10-19 16:30 | disposition home or self-care (01) | DRG 189 ==
LOC: ED 13:47 → 3A 18:31
PROVIDERS: ADMIT Internal Medicine; ATTEND Internal Medicine
DX: J96.01 Acute respiratory failure with hypoxia (principal); J44.0 Chronic obstructive pulmonary disease with (acute) lower respiratory infection; I69.354 Hemiplegia and hemiparesis following cerebral infarction affecting left non-dominant side; J44.1 Chronic obstructive pulmonary disease with (acute) exacerbation; E78.2 Mixed hyperlipidemia; J20.9 Acute bronchitis, unspecified; I50.9 Heart failure, unspecified; I11.0 Hypertensive heart disease with heart failure; G89.29 Other chronic pain; J45.909 Unspecified asthma, uncomplicated; Z71.6 Tobacco abuse counseling; Z95.2 Presence of prosthetic heart valve; Z79.899 Other long term (current) drug therapy; Z88.8 Allergy status to other drugs, medicaments and biological substances; I25.2 Old myocardial infarction; Z82.49 Family history of ischemic heart disease and other diseases of the circulatory system; Z87.891 Personal history of nicotine dependence
CPT/HCPCS: 36415; 71010; 80048; 80053; 83036; 84484; 85007; 85025; 93005; 93010; 94640; 94760; 96374; 96375; J1170; J1650; J1956; J2270; J2405; J2765; J2930; J3475; J7042; J7512; Q0162